=== PATIENT | male | born 1950 | race Caucasian/White ===

== ENCOUNTER 2022-07-08 14:41 | Inpatient (IN) ==
[2022-07-08] MEDS ORDERED: D5% in Water 1,000 ML IVC PRN (20:24)
[2022-07-08] MEDS ORDERED: Dextrose Gel 15 GM/37.5 ML TUBE PO PRN ×2 (20:24)
[2022-07-08] MEDS ORDERED: *HR* Dextrose 50 % in Water (Syg) 50 ML SYRINGE IVP PRN (20:24)
[2022-07-09 05:45] LABS: Basophils # 0.1 K/mcL (0.0-0.2); Basophils % 0.7 %; Eosinophils # 0.4 K/mcL (0.0-0.6); Eosinophils % 3.6 %; Hematocrit 34.9 % (37.5-50.1); Hemoglobin 11.5 g/dL (12.9-16.9); Immature Granulocytes % 0.4 % (0-4); Mean Corpuscular Hemoglobin 28.7 pg (28.0-33.3); Mean Platelet Volume 9.4 fL (9.4-12.4); Monocytes % 8.8 %; Neutrophils # 6.6 K/mcL (1.6-8.9); Platelet Count 265 K/mcL (140-400); Red Blood Count 4.01 M/mcL (4.19-5.50); Red Cell Distribution Width 14.2 % (11.5-14.5); Segmented Neutrophils % 59.5 %; White Blood Count 11.1 K/mcL (4.3-11.1)
[2022-07-09 06:01] LABS: Calcium 8.7 mg/dL (8.6-10.3); Potassium 3.7 mEq/L (3.5-5.1)
[2022-07-09] MEDS: *HR* Enoxaparin 40 MG/0.4 ML SYRINGE SQ SCH (06:36)
[2022-07-09] MEDS ORDERED: Insulin LISPRO 300 UNITS/3 ML VIAL SUBQ SCH (07:30)
[2022-07-09] MEDS ORDERED: METFORMIN HCL 500 MG PO SCH (08:00)
[2022-07-09] MEDS: PARoxetine 20 MG TABLET PO SCH (08:12)
[2022-07-09] MEDS: Nicotine 21 MG PATCH.TD24 TD SCH (08:13)
[2022-07-09] MEDS ORDERED: *HR* SitaGLIPtin 100 MG TABLET PO SCH (09:00)
[2022-07-09] MEDS ORDERED: *HR* GlyBURIDE 2.5 MG TABLET PO SCH (09:00)
[2022-07-10] MEDS: *HR* Enoxaparin 40 MG/0.4 ML SYRINGE SQ SCH (05:16)
[2022-07-10] MEDS: Nicotine 21 MG PATCH.TD24 TD SCH (08:25)
[2022-07-10] MEDS: PARoxetine 20 MG TABLET PO SCH (08:26)
[2022-07-10] MEDS: haloperidoL 1 MG TABLET PO STA ×2 (16:28→16:34)
[2022-07-10] MEDS ORDERED: haloperidoL 1 MG TABLET PO PRN (16:36)
[2022-07-10] MEDS ORDERED: Haloperidol Lactate 5 MG/ML VIAL IVP PRN (16:39)
[2022-07-10] MEDS ORDERED: Haloperidol Lactate 5 MG/ML VIAL IM PRN (16:43)
[2022-07-10] MEDS: *HR* HYDROcodone/Acet 5/325 mg TABLET PO PRN (20:52)
[2022-07-11] MEDS: *HR* Enoxaparin 40 MG/0.4 ML SYRINGE SQ SCH (06:01)
[2022-07-11] MEDS: Nicotine 21 MG PATCH.TD24 TD SCH (08:49)
[2022-07-11] MEDS: PARoxetine 20 MG TABLET PO SCH (08:49)
[2022-07-11] MEDS: *HR* HYDROcodone/Acet 5/325 mg TABLET PO PRN (20:45)
[2022-07-12 05:06] LABS: Basophils # 0.1 K/mcL (0.0-0.2); Basophils % 0.8 %; Eosinophils # 0.4 K/mcL (0.0-0.6); Hematocrit 33.4 % (37.5-50.1); Hemoglobin 11.2 g/dL (12.9-16.9); Immature Granulocytes % 0.7 % (0-4); Lymphocytes # 3.2 K/mcL (0.6-4.6); Lymphocytes % 33.5 %; Mean Corpuscular HGB Conc 33.5 g/dL (31.6-35.5); Mean Corpuscular Hemoglobin 29.2 pg (28.0-33.3); Mean Platelet Volume 9.4 fL (9.4-12.4); Monocytes # 0.9 K/mcL (0.0-1.3); Monocytes % 9.4 %; Platelet Count 270 K/mcL (140-400); Red Blood Count 3.84 M/mcL (4.19-5.50); Red Cell Distribution Width 14.3 % (11.5-14.5); Segmented Neutrophils % 51.6 %; White Blood Count 9.6 K/mcL (4.3-11.1)
[2022-07-12 05:17] LABS: Calcium 8.8 mg/dL (8.6-10.3); Potassium 4.4 mEq/L (3.5-5.1)
[2022-07-12] MEDS: *HR* Enoxaparin 40 MG/0.4 ML SYRINGE SQ SCH (05:19)
[2022-07-12] MEDS: Nicotine 21 MG PATCH.TD24 TD SCH (07:55)
[2022-07-12] MEDS: PARoxetine 20 MG TABLET PO SCH (07:55)
[2022-07-13 03:16] LABS: Bilirubin,Urine Negative (Negative); Blood,Urine Moderate (Negative); Clarity,Urine Clear (Clear); Color,Urine Yellow (Yellow); Glucose,Urine (UA) Normal (Normal); Ketones,Urine Negative (Negative); Leukocyte Esterase,Urine Negative (Negative); Nitrite,Urine Negative (Negative); PH,Urine 5.5 pH Units (5.0-8.0); Protein,Urine Negative (Neg-Trace); Specific Gravity,Urine <= 1.005 (1.010-1.025); Urobilinogen,Urine Normal (Normal)
[2022-07-13 04:25] LABS: Amorphous Sediment,Urine Few per hpf (None-Few)
[2022-07-13] MEDS: *HR* Enoxaparin 40 MG/0.4 ML SYRINGE SQ SCH (05:33)
[2022-07-13] MEDS: PARoxetine 20 MG TABLET PO SCH (08:32)
[2022-07-13] MEDS: Nicotine 21 MG PATCH.TD24 TD SCH (08:32)
[2022-07-14] MEDS: *HR* Enoxaparin 40 MG/0.4 ML SYRINGE SQ SCH (05:39)
[2022-07-14] MEDS: PARoxetine 20 MG TABLET PO SCH (08:52)
[2022-07-14] MEDS: Nicotine 21 MG PATCH.TD24 TD SCH (08:53)
[2022-07-15] MEDS: *HR* HYDROcodone/Acet 5/325 mg TABLET PO PRN ×2 (01:45→21:05)
[2022-07-15] MEDS: *HR* Enoxaparin 40 MG/0.4 ML SYRINGE SQ SCH (04:51)
[2022-07-15] MEDS: Nicotine 21 MG PATCH.TD24 TD SCH (07:48)
[2022-07-15] MEDS: PARoxetine 20 MG TABLET PO SCH (07:49)
[2022-07-16 05:11] LABS: Hematocrit 33.6 % (37.5-50.1); Mean Corpuscular HGB Conc 32.7 g/dL (31.6-35.5); Mean Corpuscular Hemoglobin 28.8 pg (28.0-33.3); Mean Platelet Volume 9.4 fL (9.4-12.4); Platelet Count 286 K/mcL (140-400); Red Blood Count 3.82 M/mcL (4.19-5.50); Red Cell Distribution Width 14.6 % (11.5-14.5); White Blood Count 11.9 K/mcL (4.3-11.1)
[2022-07-16 05:31] LABS: Alanine Aminotransferase 22 Units/L (7-52); Albumin 3.5 g/dL (3.5-5.7); Albumin/Globulin Ratio 1.3 (1.1-2.2); Alkaline Phosphatase 55 Units/L (34-104); Aspartate Amino Transferase 16 Units/L (13-39); BUN/Creatinine Ratio 21 (6-26); Bilirubin,Total 0.5 mg/dL (0.3-1.0); Blood Urea Nitrogen 18 mg/dL (8-23); Calcium 8.8 mg/dL (8.6-10.3); Carbon Dioxide 29 mEq/L (23-29); Chloride 103 mEq/L (98-107); Globulin 2.8 g/dL (2.4-3.5); Glucose 109 mg/dL (70-105); Magnesium 1.9 mg/dL (1.6-2.6); Osmolality,Calculated 288 (280-300); Potassium 3.9 mEq/L (3.5-5.1); Sodium 138 mEq/L (136-145); Total Protein 6.3 g/dL (6.4-8.9)
[2022-07-16] MEDS: *HR* Enoxaparin 40 MG/0.4 ML SYRINGE SQ SCH (05:47)
[2022-07-16] MEDS: PARoxetine 20 MG TABLET PO SCH (08:19)
[2022-07-16] MEDS: Nicotine 21 MG PATCH.TD24 TD SCH (08:20)
[2022-07-16] MEDS: *HR* HYDROcodone/Acet 5/325 mg TABLET PO PRN (20:00)
[2022-07-17] MEDS: *HR* Enoxaparin 40 MG/0.4 ML SYRINGE SQ SCH (04:32)
[2022-07-17] MEDS: PARoxetine 20 MG TABLET PO SCH (08:22)
[2022-07-17] MEDS: Nicotine 21 MG PATCH.TD24 TD SCH (08:23)
[2022-07-17] MEDS: *HR* HYDROcodone/Acet 5/325 mg TABLET PO PRN (22:10)
[2022-07-17 23:52] LABS: Bilirubin,Urine Negative (Negative); Blood,Urine Small (Negative); Clarity,Urine Slightly Cloudy (Clear); Glucose,Urine (UA) 500 mg/dL (Normal); Ketones,Urine Negative (Negative); Leukocyte Esterase,Urine Small (Negative); Nitrite,Urine Negative (Negative); PH,Urine 6.5 pH Units (5.0-8.0); Protein,Urine 30 mg/dL (Neg-Trace); Specific Gravity,Urine 1.025 (1.010-1.025); Urobilinogen,Urine Normal (Normal)
[2022-07-17 23:57] LABS: Color,Urine Yellow (Yellow)
[2022-07-17 23:58] LABS: Bacteria,Urine Few per hpf (None-Few)
[2022-07-18] MEDS: *HR* Enoxaparin 40 MG/0.4 ML SYRINGE SQ SCH (06:42)
[2022-07-18] MEDS: Nicotine 21 MG PATCH.TD24 TD SCH (08:30)
[2022-07-18] MEDS: PARoxetine 20 MG TABLET PO SCH (08:30)
[2022-07-18] MEDS: cephALEXin 500 MG CAPSULE PO SCH ×2 (15:09→19:55)
[2022-07-19 04:42] LABS: Basophils # 0.1 K/mcL (0.0-0.2); Basophils % 0.8 %; Eosinophils # 0.3 K/mcL (0.0-0.6); Eosinophils % 2.9 %; Hematocrit 33.7 % (37.5-50.1); Hemoglobin 10.8 g/dL (12.9-16.9); Lymphocytes # 3.2 K/mcL (0.6-4.6); Lymphocytes % 30.9 %; Mean Corpuscular Hemoglobin 28.4 pg (28.0-33.3); Mean Corpuscular Volume 88.7 fL (83.0-100.0); Mean Platelet Volume 9.5 fL (9.4-12.4); Monocytes % 9.4 %; Neutrophils # 5.8 K/mcL (1.6-8.9); Platelet Count 312 K/mcL (140-400); Red Cell Distribution Width 14.6 % (11.5-14.5); White Blood Count 10.5 K/mcL (4.3-11.1)
[2022-07-19] MEDS: *HR* Enoxaparin 40 MG/0.4 ML SYRINGE SQ SCH (05:34)
[2022-07-19 05:54] LABS: Calcium 8.7 mg/dL (8.6-10.3); Potassium 4.1 mEq/L (3.5-5.1)
[2022-07-19] MEDS: Nicotine 21 MG PATCH.TD24 TD SCH (08:02)
[2022-07-19] MEDS: cephALEXin 500 MG CAPSULE PO SCH ×3 (08:02→19:30)
[2022-07-19] MEDS: PARoxetine 20 MG TABLET PO SCH (08:32)
[2022-07-19 19:42] VITALS: RESP 15
[2022-07-20] MEDS: *HR* Enoxaparin 40 MG/0.4 ML SYRINGE SQ SCH (04:47)
[2022-07-20 07:45] VITALS: BP 150/82; PULSE 61; TEMP 97.8; O2SAT 98
[2022-07-20] MEDS: Nicotine 21 MG PATCH.TD24 TD SCH (08:06)
[2022-07-20] MEDS: cephALEXin 500 MG CAPSULE PO SCH (08:06)
[2022-07-20] MEDS: PARoxetine 20 MG TABLET PO SCH (08:06)
== END 2022-07-20 12:05 | DRG 641 ==
LOC: INPGRE 19:52
PROVIDERS: ADMIT Family Medicine; ATTEND Family Medicine